=== PATIENT | female | born 2000 | race Two or more races ===

== ENCOUNTER 2022-09-06 17:08 | Emergency (ER) | payer SELFPAY ==
[~2022-09-06] VITALS: Ht 160 cm; Wt 54.5 kg
[2022-09-06] MEDS ORDERED: methylPREDNISolone SOD SUCC 125 MG/2 ML VL IM ONE (17:30)
[2022-09-06] MEDS ORDERED: diphenhdrAMINE HCL 50 MG/1 ML VL IM ONE (17:30)
[2022-09-06] MEDS ORDERED: KETOROLAC TROMETH 30 MG/ML 1ML VIAL IV ONE (17:45)
[2022-09-06] MEDS ORDERED: SODIUM CHLORIDE 0.9% 1,000 ML IV ONE (17:45)
[2022-09-06] MEDS ORDERED: EPINEPHrine HCL 1 MG/1 ML AMP IM ONE (17:45)
[2022-09-06] MEDS ORDERED: ALBUTEROL SULF 2.5 MG/0.5ML(0.5%) NEB SOLN NEB ONE (17:45)
[2022-09-06] MEDS ORDERED: FAMOTIDINE (10MG/ML) 2ML VL IV ONE (17:45)
[2022-09-06 19:06] LABS: Basophils # (auto) 0 10 ^3/uL (0-0.2); Basophils % (auto) 0.1 % (0.0-2.0); Eosinophils # (auto) 0.1 10 ^3/uL (0-0.8); Eosinophils % (auto) 0.7 % (0.0-7.0); Hematocrit 35.9 % (36.0-46.0); Hemoglobin 11.1 g/dL (12.2-16.2); Lymphocytes # (auto) 2.2 10 ^3/uL (0.4-5.4); Lymphocytes % (auto) 19.5 % (10.0-50.0); Mean Corpuscular Hemoglobin 26.8 pg (28.0-32.0); Mean Corpuscular Volume 86.4 fL (80.0-100.0); Monocytes # (auto) 0.3 10 ^3/uL (0-1.3); Monocytes % (auto) 2.5 % (0.0-12.0); Neutrophils # (auto) 8.9 10 ^3/uL (1.6-8.6); Neutrophils % (auto) 77.2 % (37.0-80.0); Red Blood Cells 4.15 10^6/uL (4.0-5.20); Red Cell Distribution Width 13.9 % (11.8-14.3); White Blood Cell 11.5 10^3/uL (4.4-10.8)
[2022-09-06] MEDS ORDERED: ONDANSETRON HCL 4 MG/2 ML VIAL IV ONE (19:45)
[2022-09-06] MEDS ORDERED: MORPHINE SULFATE 4 MG/ML SYR/VIAL IV ONE (19:45)
[2022-09-06 19:46] LABS: Albumin 3.7 g/dL (3.4-5.0); Calcium 8.2 mg/dL (8.5-10.1); Potassium 3.3 mmol/L (3.5-5.1)
[2022-09-06 19:49] LABS: BUN/Creatinine Ratio 18.6 (10.0-20.0); Bilirubin, Total 0.2 mg/dL (0.2-1.0); Total Protein 6.4 g/dL (6.4-8.2)
[2022-09-06 20:14] VITALS: BP 88/39
[2022-09-06] MEDS ORDERED: diphenhdrAMINE HCL 50 MG/1 ML VL IV ONE (21:00)
[2022-09-06] MEDS ORDERED: LEVOTAB51 PO (21:01)
[2022-09-06] MEDS ORDERED: EPIN0.1I11 IJ (21:01)
[2022-09-06] MEDS ORDERED: HYDR-4902 PO (21:01)
[2022-09-06] MEDS ORDERED: DIPH50TA9 PO (21:01)
[2022-09-06] MEDS ORDERED: PRED20TA2 PO (21:01)
== END 2022-09-06 21:14 | disposition home or self-care (01) ==
LOC: ER 17:08 → EDBD 17:08 → ER 21:14
DX: T78.1XXA Other adverse food reactions, not elsewhere classified, initial encounter (principal); Z88.0 Allergy status to penicillin; X58.XXXA Exposure to other specified factors, initial encounter
CPT/HCPCS: 36415; 80053; 85025; 94640; 96361; 96372; 96374; 96375; 99285; J0171; J1200; J1885; J2270; J2405; J2930; J3490; J7030

== ENCOUNTER 2024-05-16 21:49 | Emergency (ER) | payer MEDICAID, OTHER ==
[~2024-05-16] VITALS: Ht 160 cm; Wt 60.4 kg
[~2024-05-16 21:49] MED LIST: DIPH50TA9 PO; EPIN0.1I11 IJ; HYDR-4902 PO; LEVOTAB51 PO; PRED20TA2 PO
[2024-05-16 22:00] VITALS: BP 121/86; RESP 18
[2024-05-16 23:03] LABS: Rapid Influenza A Negative (Negative); Rapid Influenza B Negative (Negative)
[2024-05-16 23:04] LABS: COVID19 ANTIGEN SOFIA FIA NEGATIVE (NEGATIVE)
[2024-05-17 00:33] VITALS: O2SAT 98
[2024-05-17] MEDS ORDERED: PRED20TA2 PO (00:36)
[2024-05-17] MEDS ORDERED: AMOX875T4 PO (00:36)
[2024-05-17] MEDS ORDERED: ACET500T58 PO (00:36)
--- NOTE | 2024-05-17 00:36 | ED.PDOC ---
History of Present Illness HPI Comments 23 YEAR OLD FEMALE PRESENTS TO ER WITH COMPLAINTS OF FLU-LIKE SYMPTOMS X 5 DAYS. PATIENT REPORTS SORE THROAT, CONGESTION, BILATERAL EARACHE PAIN, BODY ACHES AND CONGESTION X 5 DAYS WITH ASSOCIATED DRY COUGH X 1 DAY. PATIENT ALSO REPORTS MILD SUBSTERNAL CHEST TIGHTNESS PRESENT WITH COUGHING ONLY X 1 DAY, DENYING ANY CHEST PAIN AT REST. STATES SHE LAST TOOK TYLENOL FOR HER SYMPTOMS YESTERDAY. SHE RATES HER CURRENT PAIN A 8/10 AND PRESENTS TO ER AMBULATORY ON ARRIVAL WITH STEADY GAIT, IN NO DISTRESS WITH VITALS STABLE AND REPORTS SHE HAS BEEN AROUND SICK CONTACTS AT HOME. 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 Family History Family History: Unknown Social History Smoker: Non-Smoker Alcohol: Denies ETOH Use Drugs: Denies Drug Use Lives In: Home Constitutional: See HPI EENTM: See HPI Respiratory: See HPI Cardiovascular: No Symptoms Reported Gastrointestinal: No Symptoms Reported Genitourinary: No Symptoms Reported Neurological: No Symptoms Reported Musculoskeletal: No Symptoms Reported Integumentary: No Symptoms Reported Allergic/Immunocompromised: others (DENIES) Hematologic/Lymphatic: No Symptoms Reported Endocrine: No Symptoms Reported Psychiatric: No symptoms Reported Physical Exam General Appearance: No Apparent Distress HEENT: PERRL/EOMI, Pharynx Normal, Other (MILD ERYTHEMA/BULGING NOTED TO LEFT TM. REMAINDER BILATERAL EAR EXAM-UNREMARKABLE) Neck: Full Range of Motion, Non-Tender, Normal Respiratory: Chest Non-Tender, Lungs Clear, No Accessory Muscle Use, No Respiratory Distress, Normal Breath Sounds Cardiovascular: No Murmur, No Gallop, Regular Rate/Rhythm Breast Exam: Deferred Gastrointestinal: NOT DONE Genitalia: Deferred Pelvic: Deferred Rectal: Deferred Extremities: Normal capillary refill, Normal range of motion Neurologic: Alert, maintenance helper utility engineer II-XII nml as Tested, No Motor Deficits, Normal Affect, Normal Mood, No Sensory Deficits Cerebellar Function: Normal Reflexes: Normal Skin: Dry, Normal Color, Warm Peripheral Pulses: 2+ Radial (R), 2+ Radial (L), 2+ Brachial (R), 2+ Brachial (L) Lymphatic: No Adenopathy Was a procedure done? Was a procedure done?: No Sedation Sedation?: No EKG EKG : Pulse Rate (adult): 106 [place]: Normal Cardiac Rhythm: ST Block: None ST: Normal Fever Differential Dx Differential Diagnosis: Pneumonia, Sepsis, Pharyngitis, Other (COVID-19, INFLUENZA) X-Ray, Labs, Meds, VS Vital Signs Date Time Temp Pulse Resp B/P (MAP) Pulse Ox O2 Delivery O2 Flow Rate FiO2 05/17/24 00:33 98 Room Air* 0 21 05/16/24 22:00 98.2 99 18 121/86 (98) 98 Lab Test 05/16/24 22:16 Range/Units Influenza Type A Antigen Negative Negative Influenza Type B Antigen Negative Negative SARS-CoV-2 Antigen (Rapid) Negative NEGATIVE Current Medications Medications (Trade) Dose Ordered Sig/Artemio Route Start Time Stop Time Status Last Admin Acetaminophen (Tylenol Tablet) 650 mg ONCE ONCE PO 05/17/24 00:45 05/17/24 00:46 DC 05/17/24 00:40 ALL SWAB RESULTS REVIEWED - NEGATIVE EKG REVIEWED TYLENOL 650 MG P.O. ORDERED PATIENT TOLERATING P.O. INTAKE WELL AND IN NO DISTRESS DURING ER VISIT/PRIOR TO DISCHARGE ADVISED TO FOLLOW UP WITH PCP IN 1-2 DAYS PATIENT VERBALIZED UNDERSTANDING AND AGREEABLE WITH CURRENT PLAN OF CARE ADVISED TO RETURN TO ER IMMEDIATELY IF SYMPTOMS WORSEN Time of 1ST Reevaluation: 00:12 Reevaluation 1ST: N/A Patient Education/Counseling: Diagnosis, Treatment, Prognosis, Need For Follow Up Family Education/Counseling: No Family Present Departure 1 Departure Time of Disposition: 00:32 Impression: Primary Impression: Otitis media of left ear Qualified Codes: H66.92 - Otitis media, unspecified, left ear Additional Impression: Upper respiratory infection Qualified Codes: J06.9 - Acute upper respiratory infection, unspecified Disposition: 01 HOME / SELF CARE / HOMELESS Condition: Stable e-Prescriptions Dextromethorphan Polistirex (Delsym) 30 Mg/5 Ml Anila 10 ML PO [id number] PRN, #1 BOTTLE 0 Refills Prov: MASHA ROSE 05/17/24 Azithromycin (Azithromycin) 250 Mg Tab 250 MG PO DAILY MDD 500 for 5 Days, #6 TAB 0 Refills 2 TABLETS ORALLY ON DAY ONE, THEN 1 TABLET ORALLY DAILY FOR 4 DAYS Prov: MASHA ROSE 05/17/24 Prednisone (Prednisone) 20 Mg Tab 20 MG PO BID for 5 Days, #10 TAB 0 Refills Prov: MASHA ROSE 05/17/24 Acetaminophen (Acetaminophen) 500 Mg Tab 500 MG PO Q4HPRN, #30 TAB 0 Refills Prov: MASHA ROSE 05/17/24 Discharged With: Self Critical Care Note Critical Care Time?: No Stability Stability form required: No Heart Score Heart Score: Heart Score Response (Comments) Value History N/A 0 EKG N/A 0 Age N/A 0 Risk Factors N/A 0 Troponin N/A 0 Total 0 MASHA ROSE May 17, 2024 00:36
[2024-05-17] MEDS ORDERED: AZIT-43 PO (00:37)
[2024-05-17] MEDS: ACETAMINOPHEN 325 MG TAB PO ONE (00:40)
[2024-05-17 00:53] VITALS: PULSE 106
[2024-05-17] MEDS ORDERED: DEXT30SU PO (00:53)
--- NOTE | 2024-05-18 07:40 | ECG ---
[facility] Test Date: 2024-05-17 Test Time: 00:46:24 Pat Name: ARMANDO SHEEHAN Department: er Room: Gender: F [employer] Farmer: : [id number] Requested By: MASHA ROSE Order Number: [id number] Reading MD: Sebas Hammer Measurements Intervals [place] Rate: 106 P: 76 [place]: 146 QRS: 74 QRSD: 83 T: 31 QT: 341 QTc: 453 Interpretive Statements Sinus tachycardia Right atrial enlargement Electronically Signed On 05-19-2024 16:34:36 PST by Sebas Hammer Please click the below link to view image of tracing.
== END 2024-05-17 00:56 | disposition home or self-care (01) ==
LOC: ER 21:49
DX: H66.92 Otitis media, unspecified, left ear (principal); J06.9 Acute upper respiratory infection, unspecified; Z98.890 Other specified postprocedural states; Z20.822 Contact with and (suspected) exposure to COVID-19; Z79.899 Other long term (current) drug therapy
CPT/HCPCS: 36415; 87426; 87804; 93005